=== PATIENT | female | born 2000 | race Caucasian/White ===

== ENCOUNTER 2020-05-29 18:10 | Emergency (ER) | payer OTHER ==
[~2020-05-29] VITALS: Ht 162.6 cm; Wt 105.5 kg
[2020-05-29 18:20] VITALS: BP 105/72; TEMP 97.6
[2020-05-29 19:09] LABS: COLLECTION METHOD CLEAN CATCH
[2020-05-29 19:15] LABS: BASO % 0.2 % (0.0-2.0); EOS % 0.2 % (0-4.0); GRAN # 10.3 (1.4-6.5); GRAN % 85.3 % (42.2-75.2); HEMATOCRIT 40.9 % (37.0-47.0); HEMOGLOBIN 14.3 g/dl (12.5-16.0); LYMPH # 1.2 (1.2-3.4); MEAN CELL VOLUME 89 fl (80.0-100.0); MEAN CORPUSCULAR HEMOGLOBIN 31 pg (27.0-31.0); MEAN CORPUSCULAR HGB CONC 35 g/dl (33.0-37.0); MEAN PLATELET VOLUME 11.7 fl (7.4-10.4); MONO # 0.5 (0.1-0.6); MONO % 3.9 % (1.7-9.3); PLATELET COUNT 191 K/mm3 (130-400); RED BLOOD COUNT 4.58 M/mm3 (4.10-5.30); REDCELL DISTRIBUTION WIDTH-CV 13.7 % (11.5-14.5)
[2020-05-29 19:20] LABS: MUCOUS Present /lpf; PH 7 (5-8); SQUAMOUS EPITHELIAL 0-2 /hpf; URINE APPEARANCE Turbid; URINE BACTERIA None Seen /hpf; URINE BILIRUBIN Negative (NEGATIVE); URINE BLOOD Negative (NEGATIVE); URINE COLOR Yellow; URINE GLUCOSE Negative (NEGATIVE); URINE KETONE 1+ (NEGATIVE); URINE LEUKOCYTE ESTERASE 1+ (NEGATIVE); URINE NITRATE Negative (NEGATIVE); URINE PROTEIN(semi-quant) Negative (NEGATIVE); URINE UROBILINOGEN Negative (NEGATIVE)
[2020-05-29 19:25] LABS: BILIRUBIN,TOTAL 0.4 mg/dL (0.0-1.0); C-REACTIVE PROTEIN 1.3 mg/dL (0.0-0.9); CALCIUM 9.1 mg/dL (8.4-10.2); CREATININE, serum 0.53 (0.52-1.25); POTASSIUM 4.1 mmol/L (3.4-5.0); TOTAL PROTEIN 7.2 gm/dL (6.4-8.2)
[2020-05-29] MEDS ORDERED: UNISOM25 MG PO (19:36)
[2020-05-29 22:45] VITALS: PULSE 73
== END 2020-05-29 22:45 | disposition home or self-care (01) ==
LOC: COL.ER 18:10
PROVIDERS: Nurse Practitioner Primary Care
DX: K80.20 Calculus of gallbladder without cholecystitis without obstruction (principal)
CPT/HCPCS: J2405; J7120

== ENCOUNTER 2020-06-07 07:30 | Day surgery (SDC) | payer OTHER ==
[~2020-06-07] VITALS: Ht 162.6 cm; Wt 103.3 kg
[2020-06-07] VITALS (11 sets, daily range): BP systolic 106–127; BP diastolic 62–78; PULSE 62–98; TEMP 97.4–98.6
[~2020-06-07 07:30] MED LIST: UNISOM25 MG PO
--- NOTE | 2020-06-07 08:26 | NUR ---
OB nurse comes over to [facility] to complete pre-op monitoring at this time.
--- NOTE | 2020-06-07 08:30 | NUR ---
DOPPLERED HEART TONES IN THE 127 RANGE, MATERNAL PULSE 88
--- NOTE | 2020-06-07 08:37 | NUR ---
Patient to the OR at this time with Oanh Ervin RN.
--- NOTE | 2020-06-07 10:00 | NUR ---
HEART TONES 140S IN PACU. HEART RATE 80
--- NOTE | 2020-06-07 10:35 | NUR ---
PATIENT TO 222 AT 1035. REPORT FROM MIKE BEE, TREND INVESTIGATOR
--- NOTE | 2020-06-07 10:40 | NUR ---
HEART TONES 130S MATERNAL HEART RATE 80
--- NOTE | 2020-06-07 14:00 | NUR ---
heart tones dopplered in 140s. maternal heart rate in 70s
--- NOTE | 2020-06-07 16:27 | NUR ---
PATIENT HAS FELT BABY MOVE TWICE IN THE PAST HOUR
--- NOTE | 2020-06-07 20:00 | NUR ---
heart tones noted 145-155bpm per doppler. Maternal puls 64. Pt reports feeling infant move.
[2020-06-08] VITALS: BP 106/70; PULSE 57; TEMP 97.4
[2020-06-08 04:00] VITALS: BP 104/57; PULSE 59; TEMP 97.8
[2020-06-08 07:20] VITALS: BP 104/65; PULSE 59; TEMP 98.1
--- NOTE | 2020-06-08 07:20 | NUR ---
HEART TONES 145-148. MATERNAL PULSE 59. PT REPORTS SHE HAS BEEN FEELING THE BABY MOVE.
--- NOTE | 2020-06-08 07:30 | NUR ---
DR CHAVEZ HERE TO SEE PT. NOTIFIED HIM BOWEL SOUNDS ARE ABSENT AND PT DENIES PASSING GAS. HIS RESPONSE "I AM NOT WORRIED. SHE'S FINE." PROCEEDS TO MEET WITH PATIENT AND GIVE DISCHARGE ORDERS
[2020-06-08] MEDS ORDERED: NORCO 325 MG-51 TAB PO (07:35)
--- NOTE | 2020-06-08 10:54 | NUR ---
Initial visit; Patient thanked [employer] Barista for looking in on her and wishing her well and offering God's blessings.
== END 2020-06-08 11:25 | disposition home or self-care (01) ==
LOC: SDCO 07:30 → OB 09:50 → SDCO 09:50 → OB 09:50 → SDCO 06-14 09:30
DX: O99.612 Diseases of the digestive system complicating pregnancy, second trimester (principal); K80.10 Calculus of gallbladder with chronic cholecystitis without obstruction; Z3A.24 24 weeks gestation of pregnancy; Z80.0 Family history of malignant neoplasm of digestive organs; Z88.8 Allergy status to other drugs, medicaments and biological substances
CPT/HCPCS: J1170; J2405; J2704; J3010; J7120

== ENCOUNTER → 2020-09-11 | Outpatient (CLI) | payer OTHER ==
[~2020-09-11] MED LIST changes: +MOTRIN 800800 MG/TAB PO; +NORCO 325 MG-51 TAB PO
== END | disposition still patient (30) ==
LOC: ZCOL.LAB 01:46
DX: Z20.828 Contact with and (suspected) exposure to other viral communicable diseases (principal)

== ENCOUNTER 2020-09-14 08:47 | Inpatient (IN) | payer OTHER ==
[2020-09-14] VITALS (9 sets, daily range): BP systolic 105–128; BP diastolic 56–84; PULSE 58–90; TEMP 97.6
[~2020-09-14] VITALS: Ht 165.1 cm; Wt 107.3 kg
[~2020-09-14 08:47] MED LIST changes: -MOTRIN 800800 MG/TAB PO
--- NOTE | 2020-09-14 18:55 | NUR ---
185- PT. AMBULATORY TO THE UNIT WITH BY HER SIDE FOR CYTOTEC INDUCTION TONIGHT. PT. ORIENTATED TO ROOM AND CHANGED INTO [place]. PT. REPORTS GFM, NO LOF OR BLEEDING AND OCCASIONAL CONTRACTIONS. 1904- EFM AND TOCO ON AND TRACING. VITALS TAKEN AND ASSESSMENT COMPLETED. CONSENTS SIGNED.
--- NOTE | 2020-09-14 19:45 | NUR ---
1944- DR. BUSTAMANTE AND RN TO BEDSIDE FOR SVE. 1947- SVE /2. DR. BUSTAMANTE VERBALIZED SHE WOULD PLACE CYTOTEC NOW IF THIS NURSE WENT AND GOT IT. 1949- CYTOTEC 50MCG PLACED VAGINALLY BY DR. BUSTAMANTE. SHE VERBALIZED TO WAIT AND START ANITBIOTICS UNTIL I START PITOCIN.
--- NOTE | 2020-09-14 22:33 | NUR ---
2232- DR. BUSTAMANTE AND RN TO BEDSIDE FOR SVE BEFORE DR. BUSTAMANTE GOES HOME POULTRY CUTTER. DR. BUSTAMANTE STATED SVE IS SLIGHTLY CHANGED, TO A 1-1.5-2. 2234- DR. BUSTAMANTE VERBALIZED TO PATIENT AND NURSE THAT SHE WAS STRIPPING HER MEMBRANES AT THIS TIME. DR. BUSTAMANTE THEN VERBALIZED TO THIS NURSE TO NOT PLACE NEXT CYTOTEC DOSE AND TO START PITOCIN AT 0400 AND ANITBIOTICS IF STRIP LOOKED GOOD AND INCREASE PER PROTOCOL.
[2020-09-14 22:52] LABS: BASO % 0.2 % (0.0-2.0); EOS % 0.3 % (0-4.0); GRAN # 7.7 (1.4-6.5); GRAN % 74.6 % (42.2-75.2); HEMATOCRIT 39.6 % (37.0-47.0); HEMOGLOBIN 13.5 g/dl (12.5-16.0); LYMPH # 1.9 (1.2-3.4); LYMPH % 18.8 % (20.0-51.0); MEAN CELL VOLUME 91 fl (80.0-100.0); MEAN CORPUSCULAR HEMOGLOBIN 31 pg (27.0-31.0); MEAN CORPUSCULAR HGB CONC 34 g/dl (33.0-37.0); MEAN PLATELET VOLUME 12.2 fl (7.4-10.4); MONO # 0.6 (0.1-0.6); MONO % 5.6 % (1.7-9.3); PLATELET COUNT 214 K/mm3 (130-400); RED BLOOD COUNT 4.37 M/mm3 (4.10-5.30); REDCELL DISTRIBUTION WIDTH-CV 12.8 % (11.5-14.5)
[2020-09-15] VITALS (83 sets, daily range): BP systolic 85–137; BP diastolic 51–85; PULSE 47–131; TEMP 97.5–98.4
--- NOTE | 2020-09-15 07:10 | NUR ---
PATIENT OFF EFM TO BATHROOM AT THIS TIME
--- NOTE | 2020-09-15 09:59 | NUR ---
PATIENT INTERMITTENTLY TRACING, SITTING UP FOR EPIDURAL [id number]
--- NOTE | 2020-09-15 17:45 | NUR ---
1525-4344- UNSURE OF HEART BASELINE AND ACELS/ DECELS. DR BUSTAMANTE NOTIFIED
--- NOTE | 2020-09-15 20:30 | NUR ---
2029- Spoke with Dr. Fulton for an update on pt's status with SVE and FHR tracing reviewed. 2039- Pushing instructions reviewed and pushing started. FHR intermittently tracing while pushing. EFM monitor adjusted. 2114- Dr. Fulton on the unit. FHR tracing reviewed. 2129- Update given to Dr. Fulton with pushing progress and FHR tracing reviewed. 2144- Dr. Fulton at the bedside pushing with pt. 2145- Pt set up for delivery. Nursery RN notified. 2148- of viable female . placed on mom's abdomen. Cords clamped and cut. Care of the given to Nursery RN at the bedside. 2150- of placenta. Pitocin started at 333ml/hr per order and protocol. Fundus firm with massage and lochia WNL. 2154- Lochia increasing during perineal repair. Methergine given per order from Dr. Fulton. See EMAR for details.
--- NOTE | 2020-09-15 21:50 | NUR ---
PARRIS Lovelace at the bedside for epidural dosing. See anesthesia records for details.
--- NOTE | 2020-09-16 00:30 | NUR ---
Pt up to the bathroom with standby assist and without complications. Pt was able to void. Philomena-care done. Pt transferred to room 214 ambulatory. Oriented to room, bed and call light within reach. Plan of care reviewed.
[2020-09-16 00:55] VITALS: BP 130/79; PULSE 76
[2020-09-16 04:15] VITALS: BP 122/70; PULSE 82; TEMP 98.6
[2020-09-16 07:41] VITALS: BP 109/68; PULSE 77; TEMP 97.5
[2020-09-16 12:00] VITALS: BP 114/58; PULSE 74; TEMP 97.9
[2020-09-16] MEDS ORDERED: MOTRIN 800800 MG/TAB PO (12:11)
[2020-09-16 16:11] VITALS: BP 96/47; PULSE 85; TEMP 98.2
[2020-09-16 21:00] VITALS: BP 113/40; PULSE 76; TEMP 98.7
[2020-09-17 07:30] VITALS: BP 104/62; PULSE 68; TEMP 97.5
--- NOTE | 2020-09-17 10:03 | NUR ---
Initial visit; Parents thanked Gaming Floor Supervisor for offering congratulations and God's blessings for the of their daughter. Gaming Floor Supervisor thanked family for choosing [facility].
--- NOTE | 2020-09-17 13:16 | NUR ---
1150 DISCHARGE INSTRUCTIONS REVIEWED WITH PATIENT AND SPOUSE. BOTH VERBALIZED UNDERSTANDING. WILL NOTIFY THIS RN WHEN READY TO LEAVE. 1215 ALL PERSONAL BELONGINGS GATHERED FROM PATIENT ROOM. PATIENT LEFT AMBULATORY AND IN NO APPARENT DISTRESS. PATIENT ACCOMPANIED BY SPOUSE AND THIS RN.
== END 2020-09-17 12:15 | disposition home or self-care (01) | DRG 807 ==
LOC: OB 08:47 → LDR 18:50 → OB 09-16 05:00
PROVIDERS: ADMIT Obstetrics & Gynecology
PROC: 10E0XZZ Delivery of Products of Conception, External Approach (ICD-10-PCS; principal; 2020-09-15)
PROC: 0KQM0ZZ Repair Perineum Muscle, Open Approach (ICD-10-PCS; 2020-09-15)
PROC: 10907ZC Drainage of Amniotic Fluid, Therapeutic from Products of Conception, Via Natural or Artificial Opening (ICD-10-PCS; 2020-09-15)
PROC: 3E0P7VZ Introduction of Hormone into Female Reproductive, Via Natural or Artificial Opening (ICD-10-PCS; 2020-09-15)
PROC: 3E033VJ Introduction of Other Hormone into Peripheral Vein, Percutaneous Approach (ICD-10-PCS; 2020-09-15)
DX: O36.5930 Maternal care for other known or suspected poor fetal growth, third trimester, not applicable or unspecified (principal); Z37.0 Single live birth; Z3A.37 37 weeks gestation of pregnancy; O99.824 Streptococcus B carrier state complicating childbirth; O99.214 Obesity complicating childbirth; E66.9 Obesity, unspecified; O70.1 Second degree perineal laceration during delivery; Z90.49 Acquired absence of other specified parts of digestive tract; O26.893 Other specified pregnancy related conditions, third trimester; O75.89 Other specified complications of labor and delivery
CPT/HCPCS: J2210; J2400; J2405; J2540; J2590; J2795; J7120

== ENCOUNTER 2022-09-09 18:39 | Inpatient (IN) | payer OTHER ==
[~2022-09-09] VITALS: Ht 162.6 cm; Wt 109.1 kg
[2022-09-09] VITALS (9 sets, daily range): BP systolic 94–139; BP diastolic 54–89; PULSE 67–112; TEMP 98.5
[~2022-09-09 18:39] MED LIST changes: +MOTRIN 800800 MG/TAB PO
--- NOTE | 2022-09-09 19:00 | NUR ---
1900 G3L1 40.1 WEEK GEST TO LR6 WITH C/O SROM WITH CLEAR FLUID AT 1745 TODAY. EFM ON. ACCELS WITH MOVEMENT NOTED. LEAKS CL FLUID. POSITIVE AMNIOTRACE. SVE /-2 DR BUSTAMANTE IN ROOM TO VISIT. ORDERS RECEIVED. ASSESSMENT COMPLETED. ADM ORDERS IN. PERMITS SIGNED.
[2022-09-09] MEDS ORDERED: UNISOM25 MG PO (19:16)
[2022-09-09 20:04] LABS: BASO % 0.1 % (0.0-2.0); EOS % 0.2 % (0.0-4.0); GRAN # 6.7 K/mm3 (1.4-6.5); GRAN % 73.5 % (42.2-75.2); HEMATOCRIT 40.4 % (37.0-47.0); LYMPH # 1.9 K/mm3 (1.2-3.4); LYMPH % 20.4 % (20.0-51.0); MEAN CELL VOLUME 91 fl (80.0-100.0); MEAN CORPUSCULAR HEMOGLOBIN 32 pg (27-31); MEAN CORPUSCULAR HGB CONC 35 g/dl (33.0-37.0); MEAN PLATELET VOLUME 11.4 fl (7.4-10.4); MONO # 0.5 K/mm3 (0.1-0.6); MONO % 5.6 % (1.7-9.3); PLATELET COUNT 199 K/mm3 (130-400); RED BLOOD COUNT 4.43 M/mm3 (4.10-5.30); REDCELL DISTRIBUTION WIDTH-CV 13.2 % (11.5-14.5)
--- NOTE | 2022-09-09 22:15 | NUR ---
1287 PT TURNED TO RIGHT SIDE. BABY VERY ACTIVE AND COMSTANTLY MOVING. UABLE TO PICK CONTINUOS FHT'S. UP TO BR TO VOID AND AMB IN ROOM FOR FEW MINUTES.
[2022-09-10] VITALS (45 sets, daily range): BP systolic 83–134; BP diastolic 47–87; PULSE 55–107; TEMP 97.4–98.1
--- NOTE | 2022-09-10 02:00 | NUR ---
0200 STATES IS STARTING TO FEEL A LITTLE UNCOMFORTABLE AND WOULD LIKE HER EPIDURAL. PARKING GARAGE MANAGER CALLED TO COME TO HOSPITAL
--- NOTE | 2022-09-10 02:20 | NUR ---
0220 SITTING ON SIDE OF BED FOR EPIDURAL PLACEMENT. 0233 SINGLE SHOT GIVEN PER MARKETING PROPOSAL SPECIALIST. SEE ANESTHESIA RECORDS FOR MORE INFORMATION.
--- NOTE | 2022-09-10 03:06 | NUR ---
0306 B/P 94/53. PT FEELING NAUSEATED AND LIGHT HEADED. EPHEDRINE 10MG IV GIVEN. 0320 FEELING BETTER. MASSEY CATH INSERTED. SVE /-2. PITOCIN INCREASED TO 8 MU/MIN. TO LEFT SIDE FOR COMFORT. LIGHTS OUT TO SLEEP
--- NOTE | 2022-09-10 04:35 | NUR ---
0435 B/P 86/53. FEELING SL NAUSEATED WHEN MOVES IN BED. EPHEDRINE 10MG IV GIVEN.
--- NOTE | 2022-09-10 07:00 | NUR ---
0633-PT C/O VAGINAL PRESSURE. SVE PERFORMED BY Amadeo LOYD RN. SVE /-2. PERICARE PERFORMED BY RN. PT REPOSITIONED ON RIGHT SIDE. 0635-FHR IN THE 90S. PT REPOSITIONED ON LEFT SIDE. US ADJUSTED. ABDOMEN PALPATES SOFT. IV BOLUS INITIATED. 0636-FHR IN THE 80S. PT REPOSITIONED ON RIGHT SIDE. MONITORS ADJUSTED. CHARGE NURSE AT BEDSIDE. 0637-PT REPOSITIONED IN HAND AND KNEES. RN ADJUSTING US. 0639-FHR IN THE 70S. SCALP STIMULATION PERFORMED BY Amadeo LOYD RN. SVE LIP100/-1. 0640-FHR IN THE 80S. 02 MASK PLACED ON PT. US ADJUSTED. 0642-B/P 87/48 AT THIS TIME. 0644-PITOCIN TURNED OFF. DR. BUSTAMANTE CALLED. 0645-EPHEDRINE GIVEN BY Amadeo LOYD RN. FHR IN THE 110S. 0650-FSE PLACED BY Amadeo PERERA RN. FHR IN THR 110S WITH MODERATE VARIABILITY. 0651-PT REPOSITIONED ON RIGHT SIDE. TOCO ADJUSTED. B/P 90/54. EPHEDRINE GIVEN PER . 0655-VS WNL. FHR IN THE 120S WITH MODERATE VARIABILITY. PT STABLE AT THIS TIME. PER KEEP PITOCIN OFF.
--- NOTE | 2022-09-10 07:45 | NUR ---
0724-FHR IN THE 100S. RN AT BEDSIDE REPOSITIONING ON LEFT SIDE. 0726-REPOSITIONED ON RIGHT SIDE. CHARGE NURSE AT BEDSIDE FOR ASSISTANCE. FHR IN THE 110S. 0728-SVE LIP/100/0 ISABEL LOYD RN. FHR IN THE 70S. PT REPOSITIONED ON RIGHT SIDE. IV BOLUS INFUSING. O2 MASK ON. 0730-PT REPOSITIONED ON LEFT SIDE. 0732-FHR IN THE 110S WITH MODERATE VARIABILITY. TOCO ADJUSTED. VS WNL. PT STABLE AT THIS TIME. 0745-DR. BOOTH NOTIFIED BY TELEPHONE. NO NEW ORDERS GIVEN.
--- NOTE | 2022-09-10 08:36 | NUR ---
0805-FHR DECREASED INTO THE 80S. RN AT BEDSIDE REPOSITIONING PT ON RIGHT SIDE. 0807-REPOSITIONED PT ON LEFT SIDE. ABDOMEN PALPATED SOFT BETWEEN CONTRACTIONS. IV BOLUS INFUSING. O2 MASK ON PT. 0808-PT IN SEMI-FOWLERS. SVE PERFORMED BY Amadeo LOYD RN . PT REPOSITIONED TO LEFT SIDE. 0810-FHR IN THE 100S AT THIS TIME. DR. BOOTH NOTIFIED BY TELEPHONE. EN ROUTE. 0812-FHR IN THE 110S WIT MODERATE VARIABILITY AT THIS TIME. VS WNL. PERICARE PROVIDED. 0816-FHR IN THE 80S. PT REPOSITIONED ON RIGHT SIDE. ADDITIONAL HELP CALLED. 0817-CHARGE NURSE AT BEDSIDE. PT REPOSITIONED ON LEFT SIDE. PT HAS URGE TO PUSH. SVE PERFORMED BY Amadeo LOYD RN. CERVIS IS UNCAHNGED. SCALP STIMULATION PROVIDED INBETWEEN CONTRACTIONS. 0821-DR. BOTOH AT BEDSIDE. FHR IN THE 80S WITH MODERATE VARIABILITY. PT LEGS PLACED IN STRIRRUPS. PERICARE PROVIDED. PT PUSHING WITH CONTRACTIONS. RN CONTINOUSLY AT BEDSIDE MONITORING FHR. 0825-MASSEY REMOVED BY RN. FHR IN THE 70S AT THIS TIME. DR. BOOTH EXPLAINING RISKS AND BENEFITS OF VACUUM DELIVERY TO PT. PT VERBALIZED UNDERSTANDING AND AGREES TO OPERATIVE DELIVERY. 0828-VACUUM APPLIED TO INFANT HEAD BY DR. BOOTH. PRESSURE APPLIED TO GREEN AND TRACTION APPLIED BY DR. BOOTH WHILE PT PUSHING. 0829-POP OFF X1. VACUUM REAAPLIED BY DR. BOOTH. 0830-VAD OF INFANT HEAD BY DR. BOOTH. VACUUM REMOVED BY DR. BOOTH. NUCHAL X1 LOOSE AND REDUCED BY DR. BOOTH. OF INFANT BODY PER MD. PLACED ON MOTHER'S CHEST AND NURSERY RN ASSUMES CARE. 0836- OF PLACENTA. PITOCIN BOLUS INFUSING. BLEEDING WNL. DR. BOOTH BEGINNING PERIURETHRAL REPAIR. 0850-CYTOTEC 600MCG ORDERED BY DR. BOOTH. 0651-CYTOTEC AMDINISTERED RECTALLY BY DR. BOOTH. 0700-BLEEDING WNL. PERICARE PROVIDED BY RN. PT LEGS REMOVED FROM STIRRUPS. PT STABLE AT THIS TIME. CARE PLAN UPDATED.
[2022-09-11 00:19] VITALS: BP 118/72; PULSE 79; TEMP 98.1
[2022-09-11 08:30] VITALS: BP 112/64; PULSE 86; TEMP 98.1
[2022-09-11] MEDS ORDERED: MOTRIN 800800 MG/TAB PO (08:36)
--- NOTE | 2022-09-11 09:15 | NUR ---
Initial visit attempt; Nurse with patient. Fuel Retrofitting Technician left a card of congratulations and God's blessings for the of their daughter and information regardint the availability of spiritual care at [facility].
== END 2022-09-11 12:15 | disposition home or self-care (01) | DRG 807 ==
LOC: LDRO 18:39 → LDR 19:14 → OB 09-10 15:34
PROVIDERS: ADMIT Obstetrics & Gynecology
PROC: 10D07Z6 Extraction of Products of Conception, Vacuum, Via Natural or Artificial Opening (ICD-10-PCS; principal; 2022-09-10)
PROC: 0UQMXZZ Repair Vulva, External Approach (ICD-10-PCS; 2022-09-10)
PROC: 0HQ9XZZ Repair Perineum Skin, External Approach (ICD-10-PCS; 2022-09-10)
DX: O48.0 Post-term pregnancy (principal); Z37.0 Single live birth; Z3A.40 40 weeks gestation of pregnancy; O99.214 Obesity complicating childbirth; E66.9 Obesity, unspecified; O76 Abnormality in fetal heart rate and rhythm complicating labor and delivery; O70.0 First degree perineal laceration during delivery; O69.81X0 Labor and delivery complicated by cord around neck, without compression, not applicable or unspecified; O75.89 Other specified complications of labor and delivery; Z67.91 Unspecified blood type, Rh negative; Z23 Encounter for immunization
CPT/HCPCS: J2405; J2590; J2791; J2795; J7120